=== PATIENT | female | born 1990 | race Caucasian/White ===

== ENCOUNTER 2018-06-18 14:00 | Inpatient (IN) | payer OTHER ==
[~2018-06-18] VITALS: Ht 165.1 cm; Wt 39.9 kg
== END 2018-06-21 09:25 | disposition home or self-care (01) | DRG 744 ==
LOC: EDSTATUS 14:00 → O/R 06-20 08:32 → CIR.AMB 06-20 14:00 → O/R 06-20 14:00 → EDSTATUS 06-20 14:00 → OB/GYN 06-20 18:06 → O/R 06-21 08:19
PROVIDERS: Obstetrics & Gynecology Obstetrics
PROC: 0CJY8ZZ Inspection of Mouth and Throat, Via Natural or Artificial Opening Endoscopic (ICD-10-PCS; 2018-06-20)
PROC: 0WJJ4ZZ Inspection of Pelvic Cavity, Percutaneous Endoscopic Approach (ICD-10-PCS; principal; 2018-06-20 07:15)
DX: N83.292 Other ovarian cyst, left side (principal); J95.72 Accidental puncture and laceration of a respiratory system organ or structure during other procedure

== ENCOUNTER 2018-06-23 13:25 | Emergency (ER) | payer OTHER ==
[~2018-06-23] VITALS: Ht 165.1 cm; Wt 39.9 kg
== END 2018-06-23 21:34 | disposition home or self-care (01) ==
LOC: ER 13:25
DX: R14.3 Flatulence (principal)

== ENCOUNTER 2018-06-26 12:00 | Outpatient (CLI) | payer OTHER ==
[~2018-06-26] VITALS: Ht 165.1 cm; Wt 39.9 kg
== END 2018-06-26 13:53 | disposition home or self-care (01) ==
LOC: OFIC 805 12:00
DX: K13.79 Other lesions of oral mucosa (principal)

== ENCOUNTER 2022-02-08 07:57 | Outpatient (CLI) | payer OTHER | END 2022-02-08 08:53 | disposition home or self-care (01) | LOC: PRENATAL 07:57 | PROVIDERS: ATTEND Obstetrics & Gynecology Maternal & Fetal Medicine | DX: O35.0XX0 Maternal care for (suspected) central nervous system malformation in fetus, not applicable or unspecified (principal); O35.3XX0 Maternal care for (suspected) damage to fetus from viral disease in mother, not applicable or unspecified; Z3A.21 21 weeks gestation of pregnancy ==